=== PATIENT | female | born 1960 | race Caucasian/White ===

== ENCOUNTER 2023-04-11 08:49 | Day surgery (SDC) | payer BC ==
[2023-04-10 09:31] LABS: Potassium 3.4 mEq/L (3.5-5.1)
--- NOTE | 2023-04-10 14:32 | EKG ---
Test Date: 2023-04-10 Test Time: 09:04:51 Network Systems Administrator: SUSAN MEASUREMENT RESULTS: Intervals: Rate: 64 VT: 164 QRSD: 84 QT: 430 QTc: 443 Lynndyl: P: 48 VT: 164 QRS: -10 T: 30 INTERPRETIVE STATEMENTS: Normal sinus rhythm Low voltage QRS Cannot rule out Inferior infarct, age undetermined Abnormal ECG Compared to ECG 05/17/2015 15:26:55 Low QRS voltage now present Myocardial infarct finding now present Sinus bradycardia no longer present Electronically Signed On 04-10-23 14:32:05 CDT by Madan Corado
[2023-04-11] MEDS ORDERED: Ringers Lactate 1,000 ML IV ONE (09:18)
[2023-04-11] MEDS ORDERED: propofoL 200 MG/20 ML VIAL IV ONE (10:39)
[2023-04-11] MEDS ORDERED: LIDOCAINE 1% MPF 5 ML VIAL ONE (10:39)
[2023-04-11] MEDS ORDERED: GLYCOPYRROLATE 0.2 MG/ML SYR ONE (12:00)
[2023-04-11] MEDS ORDERED: ONDANSETRON 4 MG/2 ML VIAL ONE (12:00)
[2023-04-11 13:25] VITALS: BP 104/54; TEMP 96.5; O2SAT 96
== END 2023-04-11 12:15 | disposition home or self-care (01) ==
LOC: OR 08:49
PROVIDERS: ATTEND Surgery
PROC: 0DBH8ZX Excision of Cecum, Via Natural or Artificial Opening Endoscopic, Diagnostic (ICD-10-PCS; principal; 2023-04-11 10:30)
DX: Z12.11 Encounter for screening for malignant neoplasm of colon (principal); K64.8 Other hemorrhoids; D12.0 Benign neoplasm of cecum
CPT/HCPCS: 93005; 80048; 36415; 88305; 45380; J2704; J2001; J2405; J7120

== ENCOUNTER 2023-06-26 06:18 | Day surgery (SDC) | payer BC ==
[2023-06-24 13:56] LABS: Potassium 3.4 mEq/L (3.5-5.1)
[2023-06-26] MEDS ORDERED: Ringers Lactate 1,000 ML IV ONE (06:47)
[2023-06-26] MEDS: CEFAZOLIN SODIUM 2 GM/VIAL ONE ×2 (07:09→07:30)
[2023-06-26] MEDS: BUPIVACAINE 0.25% PF 30 ML VIAL ONE ×2 (07:09→07:53)
[2023-06-26] MEDS ORDERED: propofoL 200 MG/20 ML VIAL IV ONE (07:16)
[2023-06-26] MEDS ORDERED: MIDAZOLAM HCL 2 MG/2 ML INJ ONE (07:16)
[2023-06-26] MEDS ORDERED: LIDOCAINE 2% MPF 5 ML VIAL ONE (07:17)
[2023-06-26] MEDS ORDERED: FENTANYL CITR 100 MCG/2 ML ONE (07:17)
[2023-06-26] MEDS ORDERED: ONDANSETRON 4 MG/2 ML VIAL ONE ×2 (07:21→09:24)
[2023-06-26] MEDS ORDERED: LIDOCAINE HCL/EPINEPHRINE 20 ML MDV ONE (07:32)
[2023-06-26] MEDS ORDERED: dexAMETHasone 4 MG/ML VIAL ONE (07:55)
--- NOTE | 2023-06-26 09:00 | P.OP ---
Preoperative diagnosis: Recurrent RIGHT Neck Lipoma Postoperative diagnosis: Recurrent RIGHT Neck Lipoma Primary procedure: Excision of Recurrent RIGHT Neck Lipoma Anesthesia: GETA + Local Estimated blood loss: <10cc Specimen: Lipoma (cm) 7 x 6 x 5 Findings: Lipoma runs near int jugular, subclavian, to scapula, near brachial plexus Complications: None Drain(s): DIVINA drain (7mm Flat) Transferred to: Recovery Room Condition: Good
[2023-06-26] MEDS: HYDROMORPHONE HCL 1 MG/ML INJ ONE ×2 (09:15→09:20)
[2023-06-26] MEDS ORDERED: HYDROCODONE/APAP 7.5/325 MG TAB ONE (10:20)
[2023-06-26 11:05] VITALS: TEMP 97
[2023-06-26 11:58] VITALS: BP 171/76; O2SAT 96
--- NOTE | 2023-06-26 19:09 | OP ---
Date of Procedure: 06/26/2023 Surgeon: Juan Arriola MD, Preoperative Diagnosis: Recurrent right neck lipoma. Postoperative Diagnosis: Recurrent right neck lipoma. Procedure Performed: Excision of recurrent right neck lipoma. Anesthesia: General endotracheal plus local with 0.25% Marcaine. Estimated Blood Loss: 10 cc. Specimen: Approximately 7 cm x 6 cm x 5 cm lipomatous mass of the right supraclavicular position ext ending deep. Findings: Recurrent lipomatous mass approximately 7 cm x 6 cm x 5 cm of the right neck region. Supr aclavicular position was noted with extension circumferentially around to near the confluence of the jugular vein and the subclavian/clavicular region extending deep posteriorly towards the posterior as pect of the scapula near the fascia of the posterior aspect of the scapula. Complications: None. Drains: A 7 mm flat DIVINA drain. Disposition: The patient transferred to the recovery room in good condition. Procedure In Detail: After informed consent was obtained, the patient was brought to the operating r oom, prepped and draped in the usual sterile fashion. After adequate anesthesia was achieved, I made a linear incision parallel to the clavicle down through the subcutaneous tissues with a 15 blade. I then dissected circumferentially using electrocautery down to the subcutaneous tissues to expose the lipomatous mass. Once the lipomatous mass was appreciated, I placed a finger and digitally swept ba ck all surrounding attachment tissues bluntly and delivered the lipoma out of the field at this point . At this point, I had to dissect free some vasculature, which was coming in from multiple direction s. I placed a 3-0 Vicryl suture in a venous bleeding vessel near the superior aspect of the lipomato us mass, which appeared to be a large dilated vein, so I achieved proximal and distal control to liga te a structure with marianna and then used 3-0 stick ties on both of these with good hemostasis at this point. I then continued circumferentially dissecting down using a combination of blunt dissection a nd electrocautery to ultimately remove the lipoma, which was found to be traveling deep all the way t o the scapula. After this was swept clean, I used the electrocautery to dissect free the lipoma from any deep tissues and the surrounding adipose tissue. This was and sent off for pathologi c examination. I then inspected the area for hemostasis. There was minimal hemostasis required at t he fat position in deep, which was controlled with electrocautery. There was no nerve interactions a nd spasms of any body part using minimal electrocautery on a setting of 25 throughout the procedure. Therefore, all nerve structures were protected throughout. I then irrigated the area copiously. No additional hemostatic maneuvers were required. I placed a 7 mm flat DIVINA drain into the cavity and br ought it out through a separate stab incision inferior to the incision using the attached spike. I autumn cabrera removed the spike and secured the drain after appropriately sizing it to the skin using a 3-0 nyl on suture. The area was copiously irrigated once again, and the deep planes were closed using interr upted 3-0 Vicryl suture. This deep dermal plane was closed using 3-0 Vicryl suture, and the subcutan eous tissues were closed using a 4-0 Monocryl in a running fashion. Dermabond placed over top. The patient tolerated the procedure without evidence of any complication and transferred to PACU in good condition. All counts were correct at the end of the case. RAIZA/MANDIEL Voice ID: [id number] Report ID: [id number]
== END 2023-06-26 11:40 | disposition home or self-care (01) ==
LOC: PRE 06:18 → OR 11:40
PROVIDERS: ATTEND Surgery
PROC: 0JB40ZZ Excision of Right Neck Subcutaneous Tissue and Fascia, Open Approach (ICD-10-PCS; principal; 2023-06-26 07:30)
DX: D17.0 Benign lipomatous neoplasm of skin and subcutaneous tissue of head, face and neck (principal)
CPT/HCPCS: 80048; 36415; 88304; 11426; J2704; J1100; J2001; J2250; J3010; J1170; J2405 ×2; J7120